=== PATIENT | female | born 1945 | race Caucasian/White ===

== ENCOUNTER → 2016-11-20 | Outpatient (CLI) | payer BC | END | disposition home or self-care (01) | LOC: C.LABSPEC 17:26 | PROVIDERS: ATTEND Podiatrist Primary Podiatric Medicine | DX: B35.1 Tinea unguium (principal) ==

== ENCOUNTER 2017-03-26 20:15 | Observation (INO) | payer BC, OTHER ==
[~2017-03-26] VITALS: Ht 162.6 cm; Wt 77.9 kg
--- NOTE | 2017-03-26 21:53 | EMERGENCY ROOM VISIT NOTE ---
History Report prepared by Leonardo: Asiya Elliott Under the Supervision of: Dr. Melva Brunson M.D. First contact with patient: 21:40 Chief Complaint: VAGINAL BLEEDING Stated Complaint: BLEEDING VAGINALLY History of Present Illness The patient is a 71 year old female who presents to the Emergency Room with complaints of vaginal bleeding beginning this morning. When she used the bathroom yesterday, she noticed there was vaginal blood. This morning when she got up she had diarrhea and it was "like liquid and not a normal bowel movement. " This happened about three times and stopped around 1100 and she felt normal. Around 1630, she went to the bathroom and again noticed a lot of blood, "like a period bleed into the toilet and the tissue." She also states that she is not feeling any pain due to the bleeding. She denies any abdominal pain. The patient states she had a head cold for 3 days, but it was not that bad. The patient notes she has never been able to get . Source of History: patient Onset: this morning Position: other (vagina ) Quality: other (bleeding ) Associated Symptoms: + diarrhea, No abdominal pain Note: no pain Review of Systems See HPI for pertinent positives & negatives. A total of 10 systems reviewed and were otherwise negative. Past Medical & Surgical Medical Problems: (1) Vaginal bleeding Social History Smoking Status: Former Smoker Smokeless Tobacco Use: Unknown Marital Status: Housing Status: lives with significant other Occupation Status: retired Current/Historical Medications Scheduled Aspirin (Aspirin Ec), 81 MG PO DAILY Latanoprost (Xalatan 0.005% Oph Eve), 1 DROPS OPB HS Multivitamin (Multivitamin), 1 TAB PO DAILY Timolol Maleate (Ophth) (Timoptic), 1 DROP OPB DAILY Allergies Coded Allergies: Cephalexin (Verified Allergy, Severe, headache, 03/27/17) Physical Exam Vital Signs Date Time Temp Pulse Resp B/P (MAP) Pulse Ox O2 Delivery O2 Flow Rate FiO2 03/27/17 01:25 36.7 90 16 153/90 96 03/27/17 00:01 90 16 153/90 96 Room Air 03/26/17 21:56 89 20 149/81 97 Room Air 03/26/17 20:27 36.7 96 20 190/90 94 Room Air Physical Exam Vital signs reviewed. General: Elderly, well-appearing female, in no significant distress. HEENT: No scleral icterus, PERRLA, neck supple. Atraumatic. Cardiovascular: Regular rate and rhythm, no extra sounds. Pulmonary: Clear to auscultation bilaterally, normal work of breathing. Abdomen: Soft, nontender, nondistended, positive bowel sounds. Musculoskeletal: Atraumatic, no peripheral edema. Neurologic: Patient awake alert and oriented x 3 Skin: Warm, dry, no rash : significant vaginal atrophy with a pinky sized opening of the vaginal introitus with large, golf ball sized clots Medical Decision & Procedures ER Provider Diagnostic Interpretation: Radiology results as stated below per my review and radiologist interpretation: US PELVIC/ENDOVAG: Endometrium is mildly thickened and heterogenous measuring up to a 9 mm. Given the history of post menopausal bleeding, recommend endometrial sampling. Uterus is unremarkable. Ovaries were not visualized. Radiologist: Tian Hernandez MD Study ready at 23:51 and initial results transmitted at 00:03 Laboratory Results 03/26/17 21:55 Red Blood Count 4.59, Mean Corpuscular Volume 96.1, Mean Corpuscular Hemoglobin 34.2, Mean Corpuscular Hemoglobin Concent 35.6, Mean Platelet Volume 11.4, Neutrophils (%) (Auto) 60.2, Lymphocytes (%) (Auto) 28.3, Monocytes (%) (Auto) 7.2, Eosinophils (%) (Auto) 3.6, Basophils (%) (Auto) 0.5, Neutrophils # (Auto) 3.32, Lymphocytes # (Auto) 1.56, Monocytes # (Auto) 0.40, Eosinophils # (Auto) 0.20, Basophils # (Auto) 0.03 03/26/17 21:55 Test 03/26/17 21:55 White Blood Count 5.52 K/uL (4.8-10.8) Red Blood Count 4.59 M/uL (4.2-5.4) Hemoglobin 15.7 g/dL (12.0-16.0) Hematocrit 44.1 % (37-47) Mean Corpuscular Volume 96.1 fL (80-100) Mean Corpuscular Hemoglobin 34.2 pg (25-34) Mean Corpuscular Hemoglobin Concent 35.6 g/dl (32-36) Platelet Count 118 K/uL (130-400) Mean Platelet Volume 11.4 fL (7.4-10.4) Neutrophils (%) (Auto) 60.2 % Lymphocytes (%) (Auto) 28.3 % Monocytes (%) (Auto) 7.2 % Eosinophils (%) (Auto) 3.6 % Basophils (%) (Auto) 0.5 % Neutrophils # (Auto) 3.32 K/uL (1.4-6.5) Lymphocytes # (Auto) 1.56 K/uL (1.2-3.4) Monocytes # (Auto) 0.40 K/uL (0.11-0.59) Eosinophils # (Auto) 0.20 K/uL (0-0.5) Basophils # (Auto) 0.03 K/uL (0-0.2) RDW Standard Deviation 44.3 fL (36.4-46.3) RDW Coefficient of Variation 12.8 % (11.5-14.5) Immature Granulocyte % (Auto) 0.2 % Immature Granulocyte # (Auto) 0.01 K/uL (0.00-0.02) Anion Gap 10.0 mmol/L (3-11) Est Creatinine Clear Calc Drug Dose 79.0 ml/min Estimated GFR () 103.0 Estimated GFR (Non- 88.9 BUN/Creatinine Ratio 14.6 (10-20) Calcium Level 9.1 mg/dl (8.5-10.1) Total Bilirubin 0.5 mg/dl (0.2-1) Direct Bilirubin 0.1 mg/dl (0-0.2) Aspartate Amino Transf (AST/SGOT) 40 U/L (15-37) Alanine Aminotransferase (ALT/SGPT) 69 U/L (12-78) Alkaline Phosphatase 101 U/L (45-117) Total Protein 7.7 gm/dl (6.4-8.2) Albumin 3.7 gm/dl (3.4-5.0) Beta-Hydroxybutyric Acid 4.50 mg/dL (0.2-2.81) Laboratory results per my review. Medications Administered Medications (Trade) Dose Ordered Sig/Gary Route Start Time Stop Time Status Last Admin Dose Admin Insulin Human Regular (novoLIN-R U-100 PER UNIT) 10 units NOW STAT SC 03/26/17 23:35 03/26/17 23:37 DC 03/27/17 00:40 10 UNITS ED Course 2145: Past medical records reviewed. The patient was evaluated in room C12. A complete history and physical examination was performed. 0022: I revaluated the patient at this time as she was bleeding but she was not feeling any pain. 0030: Upon reevaluation, the patient is resting comfortably. I discussed laboratory and radiographic results with her. She verbalized agreement of the treatment plan. The patient will be evaluated for further management and care bu Dr. Alvaro DO. Medical Decision Differential diagnosis of this patient's presentation includes vaginal laceration, endometrial hyperplasia, tumor. This patient was evaluated and appeared to be in no significant distress. Physical examination reveals a small amount of blood at the introitus. Short while later was called back to the room for heavy vaginal bleeding. The patient soaked through her gown. A large clot was removed from the vagina without difficulty. Introitus was noted to be atrophic. I did speak with Dr. John of [facility] who evaluated the patient emergency department. Patient was sent for ultrasound which reveals a thickened endometrium. On recheck, the patient had bleeding under control. She is found to have an elevated glucose of 300. The patient was given 10 units of regular insulin subcutaneously. Dr. John has requested an internal medicine consultation due to the hyperglycemia. She will observe the patient for H&H checks and planning for definitive care regarding vaginal bleeding. Dr. Palmer of the hospitalist service was consulted for medical management. Medication Reconcilliation Current Medication List: was personally reviewed by me Blood Pressure Screening Patient's blood pressure: Elevated blood pressure Blood pressure disposition: Elevated BP felt to be situational Impression Primary Impression: Abnormal vaginal bleeding Additional Impressions: Endometrial thickening on ultra sound Hyperglycemia Scribe Attestation The scribe's documentation has been prepared under my direction and personally reviewed by me in its entirety. I confirm that the note above accurately reflects all work, treatment, procedures, and medical decision making performed by me. Departure Information Dispostion Admitted as an inpatient (Dr.Brunner ORTIZ ) Referrals No Doctor, Assigned (PCP) Patient Instructions My [facility] Problem Qualifiers
[2017-03-26 22:06] LABS: BASO % 0.5 %; BASO ABS # 0.03 K/uL (0-0.2); EOS % 3.6 %; HEMATOCRIT 44.1 % (37-47); HEMOGLOBIN 15.7 g/dL (12.0-16.0); IG# 0.01 K/uL (0.00-0.02); LYMPH % 28.3 %; LYMPH ABS # 1.56 K/uL (1.2-3.4); MEAN CELL VOLUME 96.1 fL (80-100); MEAN CORPUSCULAR HEMOGLOBIN 34.2 pg (25-34); MEAN CORPUSCULAR HGB CONC 35.6 g/dl (32-36); MEAN PLATELET VOLUME 11.4 fL (7.4-10.4); MONO % 7.2 %; NEUT % 60.2 %; NEUT ABS # 3.32 K/uL (1.4-6.5); PLATELET COUNT 118 K/uL (130-400); RED CELL DISTRIBUTION WIDTH CV 12.8 % (11.5-14.5); RED CELL DISTRIBUTION WIDTH SD 44.3 fL (36.4-46.3); WHITE BLOOD COUNT 5.52 K/uL (4.8-10.8)
[2017-03-26 22:22] LABS: ALBUMIN 3.7 gm/dl (3.4-5.0); CALCIUM 9.1 mg/dl (8.5-10.1); CREATININE 0.66 mg/dl (0.60-1.20); POTASSIUM 3.5 mmol/L (3.5-5.1)
[2017-03-26 22:25] LABS: TOTAL PROTEIN 7.7 gm/dl (6.4-8.2)
[2017-03-26] MEDS ORDERED: FERRIC SUBSULFATE 8 GM VIAL ONE (22:39)
[2017-03-26] MEDS ORDERED: NovoLIN-R INSULIN PER UNIT CHARGE SC STA (23:35)
[2017-03-27] MEDS ORDERED: ASPI81TA28 PO (00:33)
[2017-03-27] MEDS ORDERED: MULT-506 PO (00:33)
--- NOTE | 2017-03-27 00:33 | Medical Consult ---
Consultation Date of Consultation: Mar 26, 2017. Attending Physician: Dr Brunson Reason for Consultation: Vaginal bleeding History of Present Illness Patient is a 71-year-old G0 who presents to the emergency department with sudden onset of bright red vaginal bleeding. She had some vaginal spotting yesterday, and then developed painless heavy vaginal bleeding this evening at approximately 7 PM. She has complained of upper respiratory infection-type symptoms over the past few days as well as a bout of diarrhea. The diarrhea was non-bloody. She describes her activity over the past couple days as normal , doing laundry today. She has not seen a estate manager (or any other physician) in many years, describes her last Pap was approximately 20 years ago. She denies history of abnormal Pap smear however does describe a surgery in her 20s that she thinks may have been cryotherapy. No history of sexually transmitted infections. No other history of gynecologic surgery. Went through menopause at age 50, with no vaginal bleeding since until today. Past Medical/Surgical History PMH: Ocular hypertension PSH: gallbladder Family History Denies family history of gynecologic cancers - no history of uterine, ovarian, cervix, colon cancer. Social History Smoking Status: Former Smoker Home Medications ASA Review of Systems Constitutional: No fever, No chills, No weakness, No problem reported Eyes: No problem reported ENT: No problem reported Respiratory: No problem reported Cardiovascular: No problem reported Abdomen: No problem reported Musculoskeletal: No problem reported Genitourinary - Female: + vaginal bleeding Neurologic: No problem reported Psychiatric: No problem reported Endocrine: No problem reported Integumentary: No problem reported Allergic / Immunologic: No problem reported Physical Exam Date Time Temp Pulse Resp B/P (MAP) Pulse Ox O2 Delivery O2 Flow Rate FiO2 03/26/17 21:56 89 20 149/81 97 Room Air 03/26/17 20:27 36.7 96 20 190/90 94 Room Air General Appearance: WD/WN, no apparent distress Respiratory/Chest: no respiratory distress Cardiovascular: regular rate, rhythm Abdomen/GI: non tender, soft Genitourinary - Female: + pertinent finding (Severe atrophic vaginitis of menopause - only able to insert pediatric speculum. Large amount of clots expressed at time of vaginal exam - approx 100cc. Bleeding mass of tissue at apex of vagina. Difficult to visualize due to bleeding.) Neurologic/Psych: alert, normal mood/affect, oriented x 3 Skin: normal color, warm/dry Laboratory Results Last 24 Hours Test 03/26/17 21:55 White Blood Count 5.52 K/uL Red Blood Count 4.59 M/uL Hemoglobin 15.7 g/dL Hematocrit 44.1 % Mean Corpuscular Volume 96.1 fL Mean Corpuscular Hemoglobin 34.2 pg Mean Corpuscular Hemoglobin Concent 35.6 g/dl Platelet Count 118 K/uL Mean Platelet Volume 11.4 fL Neutrophils (%) (Auto) 60.2 % Lymphocytes (%) (Auto) 28.3 % Monocytes (%) (Auto) 7.2 % Eosinophils (%) (Auto) 3.6 % Basophils (%) (Auto) 0.5 % Neutrophils # (Auto) 3.32 K/uL Lymphocytes # (Auto) 1.56 K/uL Monocytes # (Auto) 0.40 K/uL Eosinophils # (Auto) 0.20 K/uL Basophils # (Auto) 0.03 K/uL RDW Standard Deviation 44.3 fL RDW Coefficient of Variation 12.8 % Immature Granulocyte % (Auto) 0.2 % Immature Granulocyte # (Auto) 0.01 K/uL Sodium Level 139 mmol/L Potassium Level 3.5 mmol/L Chloride Level 105 mmol/L Carbon Dioxide Level 23 mmol/L Anion Gap 10.0 mmol/L Blood Urea Nitrogen 10 mg/dl Creatinine 0.66 mg/dl Est Creatinine Clear Calc Drug Dose 79.0 ml/min Estimated GFR () 103.0 Estimated GFR (Non- 88.9 BUN/Creatinine Ratio 14.6 Random Glucose 323 mg/dl Calcium Level 9.1 mg/dl Total Bilirubin 0.5 mg/dl Direct Bilirubin 0.1 mg/dl Aspartate Amino Transf (AST/SGOT) 40 U/L Alanine Aminotransferase (ALT/SGPT) 69 U/L Alkaline Phosphatase 101 U/L Total Protein 7.7 gm/dl Albumin 3.7 gm/dl Beta-Hydroxybutyric Acid 4.50 mg/dL Assessment & Plan Assessment/Plan: Post menopausal bleeding. Given pelvic exam findings, age, and no gynecologic care for 20+ years, this is concerning for malignancy. Will await pelvic ultrasound. Pelvic exam difficult due to atrophy and patient discomfort, no abdominal masses palpated - but I am concerned patient may have either a cervical or uterine tumor. At this time, hemoglobin is 15, patient is stable. Will continue to monitor vaginal bleeding and await imaging. UPDATE: Called to ER to reevaluate patient upon her return from ultrasound. No active vaginal bleeding at this time - it seems to have subsided. Pad beneath patient is clean. Still awaiting ultrasound report. Since bleeding appears to be much improved, will plan to observe patient with pad counts for now. As long as bleeding remains minimal and stable, will likely need to sample cervix/ uterine tissue with outpatient hysteroscopy/D&C/exam under anesthesia. Will repeat H/H in AM. Due to patient's elevated blood glucose, internal medicine will be consulted for medical management.
[2017-03-27] MEDS ORDERED: LATA0.5S OPB (00:34)
[2017-03-27] MEDS ORDERED: TIMO0.5S35 OPB (00:34)
--- NOTE | 2017-03-27 00:47 | History and Physical ---
History & Physical Date & Time of Service: Mar 27, 2017 at 00:39 Chief Complaint: Postmenopausal vaginal bleeding Primary Care Physician: No Doctor, Assigned History of Present Illness Source: patient Patient is a 71-year-old G0 who presented to the emergency department with sudden onset of bright red vaginal bleeding. She had some vaginal spotting yesterday, and then developed painless heavy vaginal bleeding at approximately 7 PM. She has complained of upper respiratory infection-type symptoms over the past few days as well as a bout of diarrhea. The diarrhea was non-bloody. She describes her activity over the past couple days as normal, doing laundry today. She has not seen a auto air conditioning installer (or any other physician) in many years, describes her last Pap was approximately 20 years ago. She denies history of abnormal Pap smear however does describe a surgery in her 20s that she thinks may have been cryotherapy. No history of sexually transmitted infections. No other history of gynecologic surgery. Went through menopause at age 50, with no vaginal bleeding since until today. Past Medical/Surgical History PMH: ocular hypertension PSH: gallbladder, ?cryosurgery of cervix (in her 20s) Family History Denies gynecologic cancer history - no cervix, ovarian, uterine, colon cancer history. Social History Smoking Status: Former Smoker Smokeless Tobacco Use: Unknown Marital Status: Home Medications Scheduled Aspirin (Aspirin Ec), 81 MG PO DAILY Latanoprost (Xalatan 0.005% Oph Eve), 1 DROPS OPB HS Multivitamin (Multivitamin), 1 TAB PO DAILY Timolol Maleate (Ophth) (Timoptic), 1 DROP OPB DAILY Review of Systems Constitutional: No problem reported Respiratory: No problem reported Cardiovascular: No problem reported Musculoskeletal: No problem reported Genitourinary - Female: + vaginal bleeding Neurologic: No problem reported Psychiatric: No problem reported Endocrine: No problem reported Hematologic / Lymphatic: No problem reported Integumentary: No problem reported Allergic / Immunologic: No problem reported Physical Exam Vital Signs Date Time Temp Pulse Resp B/P (MAP) Pulse Ox O2 Delivery O2 Flow Rate FiO2 03/27/17 00:01 90 16 153/90 96 Room Air 03/26/17 21:56 89 20 149/81 97 Room Air 03/26/17 20:27 36.7 96 20 190/90 94 Room Air General Appearance: WD/WN, no apparent distress Head: normocephalic, atraumatic Respiratory/Chest: no respiratory distress Cardiovascular: regular rate, rhythm Abdomen/GI: non tender, soft, no organomegaly Genitourinary - Female: + pertinent finding (vaginal bleeding, appearance of mass at apex of vagina. ) Extremities/Musculoskelatal: normal inspection Neurologic/Psych: alert, normal mood/affect, oriented x 3 Skin: normal color, warm/dry, no rash Diagnostics Laboratory Results Results Past 24 Hours Test 03/26/17 21:55 Range/Units White Blood Count 5.52 4.8-10.8 K/uL Red Blood Count 4.59 4.2-5.4 M/uL Hemoglobin 15.7 12.0-16.0 g/dL Hematocrit 44.1 37-47 % Mean Corpuscular Volume 96.1 80-100 fL Mean Corpuscular Hemoglobin 34.2 25-34 pg Mean Corpuscular Hemoglobin Concent 35.6 32-36 g/dl Platelet Count 118 130-400 K/uL Mean Platelet Volume 11.4 7.4-10.4 fL Neutrophils (%) (Auto) 60.2 % Lymphocytes (%) (Auto) 28.3 % Monocytes (%) (Auto) 7.2 % Eosinophils (%) (Auto) 3.6 % Basophils (%) (Auto) 0.5 % Neutrophils # (Auto) 3.32 1.4-6.5 K/uL Lymphocytes # (Auto) 1.56 1.2-3.4 K/uL Monocytes # (Auto) 0.40 0.11-0.59 K/uL Eosinophils # (Auto) 0.20 0-0.5 K/uL Basophils # (Auto) 0.03 0-0.2 K/uL RDW Standard Deviation 44.3 36.4-46.3 fL RDW Coefficient of Variation 12.8 11.5-14.5 % Immature Granulocyte % (Auto) 0.2 % Immature Granulocyte # (Auto) 0.01 0.00-0.02 K/uL Sodium Level 139 136-145 mmol/L Potassium Level 3.5 3.5-5.1 mmol/L Chloride Level 105 98-107 mmol/L Carbon Dioxide Level 23 21-32 mmol/L Anion Gap 10.0 3-11 mmol/L Blood Urea Nitrogen 10 7-18 mg/dl Creatinine 0.66 0.60-1.20 mg/dl Est Creatinine Clear Calc Drug Dose 79.0 ml/min Estimated GFR () 103.0 Estimated GFR (Non- 88.9 BUN/Creatinine Ratio 14.6 10-20 Random Glucose 323 70-99 mg/dl Calcium Level 9.1 8.5-10.1 mg/dl Total Bilirubin 0.5 0.2-1 mg/dl Direct Bilirubin 0.1 0-0.2 mg/dl Aspartate Amino Transf (AST/SGOT) 40 15-37 U/L Alanine Aminotransferase (ALT/SGPT) 69 12-78 U/L Alkaline Phosphatase 101 45-117 U/L Total Protein 7.7 6.4-8.2 gm/dl Albumin 3.7 3.4-5.0 gm/dl Beta-Hydroxybutyric Acid 4.50 0.2-2.81 mg/dL Impression Assessment and Plan Assessment/Plan: Post menopausal bleeding. Given pelvic exam findings, age, and no gynecologic care for 20+ years, this is concerning for malignancy. Will await pelvic ultrasound. Pelvic exam difficult due to atrophy and patient discomfort, no abdominal masses palpated - but I am concerned patient may have either a cervical or uterine tumor. At this time, hemoglobin is 15, patient is stable. Will continue to monitor vaginal bleeding and await imaging. UPDATE: Called to ER to reevaluate patient upon her return from ultrasound. No active vaginal bleeding at this time - it seems to have subsided. Pad beneath patient is clean. Still awaiting ultrasound report. Since bleeding appears to be much improved, will plan to observe patient with pad counts for now. As long as bleeding remains minimal and stable, will likely need to sample cervix/ uterine tissue on an outpatient basis with hysteroscopy/D&C/exam under anesthesia. Will repeat H/H in AM. PLAN: At this time, patient is stable. Due to concern over the large clots she passed during her evaluation in the ER, will observe for continued/increased vaginal bleeding overnight, perform pad counts. Due to patient's elevated blood glucose, internal medicine will be consulted for medical management. If vaginal bleeding is controlled in the morning, from the gynecologic perspective, will plan to discharge to home to followup in the office as an outpatient to set up outpatient hysteroscopy/D&C. Will appreciate recommendations from consulting internal medicine service re: additional medical needs. VTE Prophylaxis VTE Risk Assessment Done? Y/N: Yes Risk Level: Moderate Given or contraindicated: SCD's Note Total Time: Critical Care 30 - 74 minutes
[2017-03-27] MEDS ORDERED: IV FLUIDS COMPLETED PRN (01:30)
[2017-03-27 01:35] VITALS: BP 159/76; PULSE 66; TEMP 36.5; O2SAT 96; BMI 29.5
[2017-03-27] MEDS ORDERED: POTASSIUM CHLORIDE 20 MEQ TABCR PO STA (01:40)
--- NOTE | 2017-03-27 01:43 | Medical Consult ---
Consultation Date of Consultation: Mar 27, 2017. Attending Physician: Reason for Consultation: hyperglycemia History of Present Illness This is a 71 yo f that presented to the ED with significant intermittent vaginal bleeding with large clots throughout the day today. The patient was seen by gynecology and admitted for observation for her vaginal bleeding. The patient was evaluated in the ED and found to be hyperglycemic and patient is not a known diabetic. She does not have a PCP nor is she currently on any medication. She states that she has no polyuria/ polydipsia, denies abdominal pain. Patient states she has no known history of MT or TIA/ stroke. Can not recall any significant past medical history. Non smoker but former smoker. Past Medical/Surgical History Medical Problems: (1) Hyperplasia of cervix Status: Acute (2) Malignancy Status: Acute (3) Rectal bleeding Status: Acute Family History Noncontributory Social History Smoking Status: Former Smoker Smokeless Tobacco Use: No Alcohol Use: socially Drug Use: none Marital Status: Housing Status: lives with family Occupation Status: retired Allergies Coded Allergies: Cephalexin (Verified Adverse Reaction, Intermediate, headache, 03/27/17) Current Inpatient Medications Current Inpatient Medications Medications (Trade) Dose Ordered Sig/[place] Route Start Time Stop Time Status Last Admin Dose Admin Miscellaneous (Iv Fluids Completed) 1 ea PRN PRN N/A 03/27/17 01:30 03/27/18 01:29 Review of Systems Constitutional: No fever, No chills, No sweats Eyes: No worsening of vision ENT: No hearing loss Respiratory: No cough, No sputum, No wheezing, No shortness of breath, No dyspnea on exertion, No dyspnea at rest Cardiovascular: No chest pain Abdomen: No pain, No nausea, No vomiting, No diarrhea, No constipation, No GI bleeding Musculoskeletal: No joint pain, No muscle pain Genitourinary - Female: + vaginal bleeding, No dysuria, No hematuria Neurologic: No memory loss, No weakness, No numbness/tingling, No balance problems Psychiatric: No depression symptoms, No anxiety Endocrine: + fatigue Hematologic / Lymphatic: + abnormal bleeding/bruising Integumentary: No rash Allergic / Immunologic: No environmental allergies Physical Exam Date Time Temp Pulse Resp B/P (MAP) Pulse Ox O2 Delivery O2 Flow Rate FiO2 03/27/17 01:25 36.7 90 16 153/90 96 03/27/17 00:01 90 16 153/90 96 Room Air 03/26/17 21:56 89 20 149/81 97 Room Air 03/26/17 20:27 36.7 96 20 190/90 94 Room Air General Appearance: no apparent distress Head: normocephalic, atraumatic Eyes: normal inspection ENT: normal ENT inspection Neck: supple Respiratory/Chest: normal breath sounds, no respiratory distress, no accessory muscle use Cardiovascular: regular rate, rhythm, no murmur, normal peripheral pulses Abdomen/GI: normal bowel sounds, non tender, soft, no organomegaly Back: normal inspection, no CVA tenderness, normal range of motion Extremities/Musculoskelatal: normal inspection, no calf tenderness, no pedal edema, normal range of motion Neurologic/Psych: alert, normal mood/affect, oriented x 3 Skin: normal color, warm/dry, no rash Lymphatic: no adenopathy Laboratory Results Last 24 Hours Test 03/26/17 21:55 White Blood Count 5.52 K/uL Red Blood Count 4.59 M/uL Hemoglobin 15.7 g/dL Hematocrit 44.1 % Mean Corpuscular Volume 96.1 fL Mean Corpuscular Hemoglobin 34.2 pg Mean Corpuscular Hemoglobin Concent 35.6 g/dl Platelet Count 118 K/uL Mean Platelet Volume 11.4 fL Neutrophils (%) (Auto) 60.2 % Lymphocytes (%) (Auto) 28.3 % Monocytes (%) (Auto) 7.2 % Eosinophils (%) (Auto) 3.6 % Basophils (%) (Auto) 0.5 % Neutrophils # (Auto) 3.32 K/uL Lymphocytes # (Auto) 1.56 K/uL Monocytes # (Auto) 0.40 K/uL Eosinophils # (Auto) 0.20 K/uL Basophils # (Auto) 0.03 K/uL RDW Standard Deviation 44.3 fL RDW Coefficient of Variation 12.8 % Immature Granulocyte % (Auto) 0.2 % Immature Granulocyte # (Auto) 0.01 K/uL Sodium Level 139 mmol/L Potassium Level 3.5 mmol/L Chloride Level 105 mmol/L Carbon Dioxide Level 23 mmol/L Anion Gap 10.0 mmol/L Blood Urea Nitrogen 10 mg/dl Creatinine 0.66 mg/dl Est Creatinine Clear Calc Drug Dose 79.0 ml/min Estimated GFR () 103.0 Estimated GFR (Non- 88.9 BUN/Creatinine Ratio 14.6 Random Glucose 323 mg/dl Calcium Level 9.1 mg/dl Total Bilirubin 0.5 mg/dl Direct Bilirubin 0.1 mg/dl Aspartate Amino Transf (AST/SGOT) 40 U/L Alanine Aminotransferase (ALT/SGPT) 69 U/L Alkaline Phosphatase 101 U/L Total Protein 7.7 gm/dl Albumin 3.7 gm/dl Beta-Hydroxybutyric Acid 4.50 mg/dL Assessment & Plan This is a 71 yo f with no significant PMHX presenting with significant vaginal bleeding and hyperglycemia Hyperglycemia - insulin ISS - Consideration for initiation of metformin in am - HBA1C and FLP - DM educator - NSS with 20 KCL @ 100cc/h HTN - most likely stress induced - recheck with PCP Vaginal bleeding - per primary team will arrange for PCP follow up via case mx DVT Prophylaxis SCD FULL CODE Attending addendum: I have supervised the medical residents activities, and agree with the H&P unless as otherwise noted. Assessment and Plan: Hyperglycemia-- Place on Accu-Cheks before meals and at bedtime with NovoLog coverage per scale Check a hemoglobin A1c and fasting lipid panel NSS + KCl 20 mEq at 100 ML's per hour Elevated blood pressure- Follow serial vital signs, if persistent elevation we will address with medications.
[2017-03-27] MEDS ORDERED: GLUCOSE 10 TABS/TUBE PO PRN (02:30)
[2017-03-27] MEDS ORDERED: GLUCAGON FOR INJ 1 MG VIAL SQ PRN (02:30)
[2017-03-27] MEDS ORDERED: DEXTROSE 50% 50 ML SYR IV PRN (02:30)
[2017-03-27] MEDS ORDERED: GLUCOSE 40% GEL 15 GM TUBE PO PRN (02:30)
[2017-03-27] MEDS ORDERED: LANTUS PER UNIT CHARGE SC STA (02:33)
[2017-03-27] MEDS ORDERED: NSS + 20MEQ KCL 1000ML 1,000 ML IV SCH (02:45)
[2017-03-27] MEDS: INSULIN ASPART 100 UNITS/ML 3 ML PEN SC SCH ×3 (03:50→12:36)
[2017-03-27 04:00] VITALS: BP 154/82; PULSE 83; TEMP 36.7; O2SAT 96
[2017-03-27 07:02] LABS: BASO % 0.3 %; BASO ABS # 0.02 K/uL (0-0.2); EOS % 2.4 %; EOS ABS # 0.15 K/uL (0-0.5); HEMATOCRIT 40.1 % (37-47); HEMOGLOBIN 14.1 g/dL (12.0-16.0); IG# 0.02 K/uL (0.00-0.02); LYMPH % 27.5 %; MEAN CELL VOLUME 95.5 fL (80-100); MEAN CORPUSCULAR HEMOGLOBIN 33.6 pg (25-34); MEAN CORPUSCULAR HGB CONC 35.2 g/dl (32-36); MEAN PLATELET VOLUME 11.2 fL (7.4-10.4); MONO % 7.6 %; MONO ABS # 0.47 K/uL (0.11-0.59); NEUT % 61.9 %; NEUT ABS # 3.83 K/uL (1.4-6.5); PLATELET COUNT 131 K/uL (130-400); RED CELL DISTRIBUTION WIDTH CV 12.7 % (11.5-14.5); RED CELL DISTRIBUTION WIDTH SD 44.5 fL (36.4-46.3); WHITE BLOOD COUNT 6.19 K/uL (4.8-10.8)
[2017-03-27 07:16] LABS: PTT PATIENT 25.4 SECONDS (21.0-31.0)
--- NOTE | 2017-03-27 07:20 | DIAGNOSTIC IMAGING REPORT ---
ULTRASOUND OF THE PELVIS CLINICAL HISTORY: Vaginal bleeding. COMPARISON STUDY: No priors. TECHNIQUE: Real-time, grayscale, and color flow sonography of the pelvis is performed both transabdominally and endovaginally. Images are reviewed in the transverse and longitudinal planes. FINDINGS: Uterus: The uterus is normal in size and echotexture, measuring 5.8 x 2.5 x 3.7 cm. Endometrium: The endometrium is normal in appearance, and the endometrial stripe is normal in thickness measuring up to 0.9 cm. Small cystic foci are present within the endometrium. Ovaries: The ovaries were not visualized on the transabdominal or endovaginal imaging. Pelvis: There is no free fluid in the cul-de-sac. No concerning adnexal lesion is seen. IMPRESSION: 1. The endometrium is thickened for age and demonstrates small cystic foci. Follow-up with gynecology is recommended with consideration to endometrial biopsy. 2. The ovaries were not visualized. No adnexal abnormality is identified. Electronically signed by: Rahul Cuevas M.D. 03/27/2017 7:18 AM Dictated Date/Time: 03/27/2017 7:17 AM
[2017-03-27 07:24] LABS: CALCIUM 8.8 mg/dl (8.5-10.1); CREATININE 0.61 mg/dl (0.60-1.20); POTASSIUM 4.2 mmol/L (3.5-5.1)
[2017-03-27] MEDS ORDERED: INSULIN ASPART 100 UNITS/ML 3 ML PEN SC SCH (07:30)
--- NOTE | 2017-03-27 07:45 | OB/GYN Progress Note ---
ICT SYSTEMS TEST ENGINEER Progress Note Date of Service Mar 27, 2017. Subjective conversation w/ patient, physical exam Ambulation: ambulating normally Voiding: no voiding problems Passing Gas: Yes Diet Tolerance: NPO Notes: Scant vaginal bleeding on pad overnight - bleeding has significantly improved. Patient is feeling well. Review of Systems Constitutional: No problem reported Respiratory: No problem reported Cardiac: No problem reported Breast: No problem reported Abdomen: No problem reported Female : + abnormal vaginal bleeding Objective Vital Signs Date Time Temp Pulse Resp B/P (MAP) Pulse Ox O2 Delivery O2 Flow Rate FiO2 03/27/17 04:00 36.7 83 18 154/82 (106) 96 Room Air 03/27/17 01:35 36.5 66 18 159/76 96 Room Air 03/27/17 01:25 36.7 90 16 153/90 96 03/27/17 00:01 90 16 153/90 96 Room Air 03/26/17 21:56 89 20 149/81 97 Room Air 03/26/17 20:27 36.7 96 20 190/90 94 Room Air Physical Exam General Appearance: WELL-APPEARING, NO APPARENT DISTRESS Respiratory/Chest: no respiratory distress Cardiovascular: regular rate, rhythm Abdomen: non tender, soft Extremities: normal inspection Laboratory Results Last 24 Hours Test 03/26/17 21:55 03/27/17 02:05 03/27/17 03:27 03/27/17 04:40 White Blood Count 5.52 K/uL Red Blood Count 4.59 M/uL Hemoglobin 15.7 g/dL Hematocrit 44.1 % Mean Corpuscular Volume 96.1 fL Mean Corpuscular Hemoglobin 34.2 pg Mean Corpuscular Hemoglobin Concent 35.6 g/dl Platelet Count 118 K/uL Mean Platelet Volume 11.4 fL Neutrophils (%) (Auto) 60.2 % Lymphocytes (%) (Auto) 28.3 % Monocytes (%) (Auto) 7.2 % Eosinophils (%) (Auto) 3.6 % Basophils (%) (Auto) 0.5 % Neutrophils # (Auto) 3.32 K/uL Lymphocytes # (Auto) 1.56 K/uL Monocytes # (Auto) 0.40 K/uL Eosinophils # (Auto) 0.20 K/uL Basophils # (Auto) 0.03 K/uL RDW Standard Deviation 44.3 fL RDW Coefficient of Variation 12.8 % Immature Granulocyte % (Auto) 0.2 % Immature Granulocyte # (Auto) 0.01 K/uL Sodium Level 139 mmol/L Potassium Level 3.5 mmol/L Chloride Level 105 mmol/L Carbon Dioxide Level 23 mmol/L Anion Gap 10.0 mmol/L Blood Urea Nitrogen 10 mg/dl Creatinine 0.66 mg/dl Est Creatinine Clear Calc Drug Dose 79.0 ml/min Estimated GFR () 103.0 Estimated GFR (Non- 88.9 BUN/Creatinine Ratio 14.6 Random Glucose 323 mg/dl Calcium Level 9.1 mg/dl Total Bilirubin 0.5 mg/dl Direct Bilirubin 0.1 mg/dl Aspartate Amino Transf (AST/SGOT) 40 U/L Alanine Aminotransferase (ALT/SGPT) 69 U/L Alkaline Phosphatase 101 U/L Total Protein 7.7 gm/dl Albumin 3.7 gm/dl Beta-Hydroxybutyric Acid 4.50 mg/dL Bedside Glucose 300 mg/dl 277 mg/dl Urine Color YELLOW Urine Appearance CLEAR Urine pH 5.0 Urine Specific [place] 1.032 Urine Protein NEG Urine Glucose (UA) 3+ Urine Ketones 1+ Urine Occult Blood 3+ Urine Nitrite NEG Urine Bilirubin NEG Urine Urobilinogen NEG Urine Leukocyte Esterase NEG Urine WBC (Auto) 1-5 /hpf Urine RBC (Auto) >30 /hpf Urine Hyaline Casts (Auto) 1-5 /lpf Urine Epithelial Cells (Auto) 10-20 /lpf Urine Bacteria (Auto) NEG Test 03/27/17 05:22 03/27/17 06:48 Bedside Glucose 203 mg/dl White Blood Count 6.19 K/uL Red Blood Count 4.20 M/uL Hemoglobin 14.1 g/dL Hematocrit 40.1 % Mean Corpuscular Volume 95.5 fL Mean Corpuscular Hemoglobin 33.6 pg Mean Corpuscular Hemoglobin Concent 35.2 g/dl Platelet Count 131 K/uL Mean Platelet Volume 11.2 fL Neutrophils (%) (Auto) 61.9 % Lymphocytes (%) (Auto) 27.5 % Monocytes (%) (Auto) 7.6 % Eosinophils (%) (Auto) 2.4 % Basophils (%) (Auto) 0.3 % Neutrophils # (Auto) 3.83 K/uL Lymphocytes # (Auto) 1.70 K/uL Monocytes # (Auto) 0.47 K/uL Eosinophils # (Auto) 0.15 K/uL Basophils # (Auto) 0.02 K/uL RDW Standard Deviation 44.5 fL RDW Coefficient of Variation 12.7 % Immature Granulocyte % (Auto) 0.3 % Immature Granulocyte # (Auto) 0.02 K/uL Prothrombin Time 10.8 SECONDS Prothromb Time International Ratio 1.0 Activated Partial Thromboplast Time 25.4 SECONDS Partial Thromboplastin Ratio 1.0 Sodium Level 142 mmol/L Potassium Level 4.2 mmol/L Chloride Level 110 mmol/L Carbon Dioxide Level 26 mmol/L Anion Gap 6.0 mmol/L Blood Urea Nitrogen 8 mg/dl Creatinine 0.61 mg/dl Est Creatinine Clear Calc Drug Dose 85.5 ml/min Estimated GFR () 105.7 Estimated GFR (Non- 91.2 BUN/Creatinine Ratio 13.7 Random Glucose 190 mg/dl Calcium Level 8.8 mg/dl Triglycerides Level 193 mg/dl Cholesterol Level 197 mg/dl HDL Cholesterol 35 mg/dl LDL Cholesterol, Calculated 123 mg/dl VLDL Cholesterol, Calculated 39 mg/dl Cholesterol/HDL Ratio 5.6 Assessment and Plan Continue Routine Care: Patient is doing well this morning - bleeding has improved significantly - she now has only a scant amount of blood on a pad. Still awaiting radiology read on ultrasound. However, by my review of images, appears to be a thickened endometrial lining with possible mass/polyp in cervix. We discussed possibility of etiologies - concern for malignancy vs benign thickened endometrium vs polyp. Plan is to discharge home today, have patient followup in office to schedule outpatient hysteroscopy D&C. Hospitalist group is consulted for elevated blood sugar management and to coordinate followup for this. Per previous note, plan is to eval blood sugars this morning and determine medical treatment (?metformin). Will discharge home pending ok from hospitalist group.
--- NOTE | 2017-03-27 07:51 | Discharge Instructions ---
Discharge Instructions Date of Service Mar 27, 2017. Admission Reason for Admission: Vaginal Bleeding Discharge Discharge Diagnosis / Problem: thickened endometrial lining Discharge Goals Goal(s): Continuing CAB STATION ATTENDANT care Activity Recommendations Activity Limitations: per Instructions/Follow-up section . Instructions / Follow-Up Instructions / Follow-Up ACTIVITY RECOMMENDATIONS: Activity: * Avoid sexual intercourse. Bathing: * Showers or baths are permissible. Vaginal Bleeding: * Odorous, blood-tinged or brownish discharge may be present. * Pads should be used and not tampons. * If bleeding becomes free flowing, notify our office at . * If you feel bleeding is severe and heavy, or you feel that this is emergent, please go to the emergency department. Temperature: * Any fever above 100.4 degrees F should be reported to our office at . FOLLOW-UP: Appointments: * You will need to call the office at soon after discharge to make the appointment for your appointment if it has not already been scheduled. * Additional information regarding activity, sexual intercourse and when to return to work will be given at this appointment. WE WISH YOU A SPEEDY RECOVERY! Current Hospital Diet Patient's current hospital diet: Diabetes Type 2 Diet Discharge Diet Recommended Diet: Diabetes Type 2 Diet Pending Studies Studies pending at discharge: no Laboratory Results Hemoglobin A1c Test 03/27/17 06:48 Range/Units Lipid Panel Test 03/27/17 06:48 Range/Units Triglycerides Level 193 H 0-150 mg/dl Cholesterol Level 197 0-200 mg/dl HDL Cholesterol 35 mg/dl Cholesterol/HDL Ratio 5.6 LDL Cholesterol, Calculated 123 mg/dl Medical Emergencies . Who to Call and When: Medical Emergencies: If at any time you feel your situation is an emergency, please call 911 immediately. . Non-Emergent Contact Non-Emergency issues call your: Primary Care Provider, [employer] Executive . . "Provider Documentation" section prepared by Payton John. . VTE Core Measure Inpt VTE Proph given/why not?: SCD's
--- NOTE | 2017-03-27 07:56 | Discharge Summary ---
Discharge Summary Date of Service Mar 27, 2017. Discharge Summary Admission Date: Mar 27, 2017 at 00:38 Discharge Date: Mar 27, 2017 Discharge Disposition: Home Principal Diagnosis: Thickened endometrial lining Problems/Secondary Diagnoses: Elevated glucose Consultations: Hospitalist service/Internal medicine Discharge Exam Please see progress note from day of discharge. Hospital Course Patient was admitted for observation from the ER - after presenting with heavy vaginal bleeding and passage of clots. Bleeding stabilized overnight, and was scant in the morning. Ultrasound showed thickened endo lining. Plans are to followup in the office for endometrial sampling (outpatient hysteroscopy, D&C). On presentation, patient had elevated glucose levels in the 300s. Hospitalist service was consulted, patient will establish primary care and will followup for further management of newly diagnosed diabetes. Total Time Spent: Less than 30 minutes This includes examination of the patient, discharge planning, medication reconciliation, and communication with other providers. Discharge Instructions Please refer to the electronic Patient Visit Report (Discharge Instructions) for additional information. Follow-Up Make an appointment with primary care. OBGYN followup in office [facility] to schedule surgery.
[2017-03-27 08:00] VITALS: BP 152/84; PULSE 88; TEMP 36.6; O2SAT 96
[2017-03-27 08:08] LABS: HEMOGLOBIN A1C 9.1 % (4.5-5.6)
[2017-03-27] MEDS ORDERED: METFORMIN HCL 500 MG TAB PO SCH (09:00)
[2017-03-27] MEDS ORDERED: GLC500 PO (10:59)
[2017-03-27] MEDS ORDERED: SITA100T3 PO (10:59)
[2017-03-27] MEDS ORDERED: GLUC-131 SC (10:59)
--- NOTE | 2017-03-27 11:09 | Progress Note ---
Progress Note Date of Service Mar 27, 2017. Progress Note time - 1100 S: no events since resident MD saw pt feels good vaginal bleeding nearly resolved denies visual change, nocturia, polyuria, polydipsia, change in appetite mild paresthesias of feet for some time O: BPs mildly elevated o/w VSS gen - nad mouth - MMM heart - 1/6 JADA RUSB, RRR, s1, s2 lungs - CTA b/l abd - soft, NT ext - no edema A/P: 1. new-onset T2DM - appreciate nutrition and Diabetes Education consults. send home with metformin 500 BID + januvia 100mg daily. discussed a1c goals, sugar goals, frequency of checks, eye f/u, etc. 2. hyperlipidemia - f/u with new PCP 3. probable essential HTN - f/u with PCP; check BPs at home; likely will need OC or ARB 4. vaginal bleeding per rolling mill operator ok from med standpoint to d/c home will arrange PCP follow-up Suhas HERNANDEZ MD
[2017-03-27 11:18] VITALS: BP 152/84; PULSE 88; TEMP 36.6; O2SAT 96
[2017-03-27 11:30] VITALS: BP 153/82; PULSE 71; TEMP 36.6; O2SAT 96
[2017-03-27 12:38] VITALS: BMI 29.5
[2017-03-27 12:53] VITALS: Ht 162.6 cm; Wt 77.9 kg
== END 2017-03-27 12:45 | disposition home or self-care (01) ==
LOC: C.EDB 20:16 → C.MS4N 03-27 00:38 → ENRESERV 03-27 00:55
PROVIDERS: ADMIT Obstetrics & Gynecology; ATTEND Obstetrics & Gynecology
DX: N93.9 Abnormal uterine and vaginal bleeding, unspecified (principal); Z87.891 Personal history of nicotine dependence; Z79.82 Long term (current) use of aspirin; R73.9 Hyperglycemia, unspecified

== ENCOUNTER 2017-04-06 07:25 | Day surgery (SDC) | payer BC ==
[2017-04-03 11:30] VITALS: BMI 29.0
--- NOTE | 2017-04-03 11:57 | PAT Medication Instructions ---
Service Date Apr 03, 2017. Current Home Medication List Latanoprost (Xalatan 0.005% Oph Eve), 1 DROPS OPB HS Metformin Hcl (Glucophage), 500 MG PO BID Multivitamin (Multivitamin), 1 TAB PO QAM Sitagliptin Phosphate (Januvia), 100 MG PO QAM Timolol Maleate (Ophth) (Timoptic), 1 DROP OPB QAM Medication Instructions For Your Scheduled Surgery - Hold the following medications 48 hours prior to surgery: Metformin Hcl (Glucophage), 500 MG PO BID - Hold the following medications the morning of surgery: Multivitamin (Multivitamin), 1 TAB PO QAM Sitagliptin Phosphate (Januvia), 100 MG PO QAM - Take the following medications the morning of surgery with a sip of water: Timolol Maleate (Ophth) (Timoptic), 1 DROP OPB QAM - Take the following medications as scheduled the night before surgery: Latanoprost (Xalatan 0.005% Oph Eve), 1 DROPS OPB HS If you have any questions please call us at [phone] or [phone] or [phone]
[~2017-04-06] VITALS: Ht 160 cm; Wt 76.2 kg
[~2017-04-06 07:25] MED LIST: DEXAMETHASONE SOD INJ 4 MG/ML VIAL ONE; FENTANYL CITRATE INJ 50 MCG/1 ML 2 ML VIAL ONE; GLC/500 PO; LACTATED RINGER'S 1000ML 1,000 ML IV SCH; LATA0.5S OPB; LIDOCAINE HCL 2% 2 ML VIAL (20MG/ML) ONE; MIDAZOLAM HCL 1 MG/ML 2ML VIAL ONE; MULT-506 PO; ONDANSETRON INJ 2 MG/ML 2 ML VIAL ONE; PROPOFOL IV EMULSION 10 MG/ML 20 ML VIAL IV ONE; SITA100T3 PO; TIMO0.5S35 OPB
[2017-04-06 08:05] VITALS: BP 147/72; PULSE 63; TEMP 36.6; O2SAT 97; Ht 160 cm; Wt 76.2 kg
--- NOTE | 2017-04-06 08:50 | History & Physical Bridge Note ---
H&P Re-Evaluation Bridge Note: I have examined the patient, reviewed the History & Physical and in the interval since the performance of the History & Physical I have noted the following changes of clinical significance: No changes noted
[2017-04-06] MEDS ORDERED: PHENYLEPHRINE 100MCG/ML 5ML SYR ONE (09:29)
[2017-04-06] MEDS ORDERED: ARTIFICIAL TEARS OP OINT 3.5 GM TUBE ONE (09:57)
[2017-04-06] MEDS ORDERED: LABETALOL HCL IV 5 MG/ML 20ML IV PRN (10:00)
[2017-04-06] MEDS ORDERED: NALOXONE HCL 0.4 MG/1 ML VIAL/CARP IV PRN (10:00)
[2017-04-06] MEDS ORDERED: PROMETHAZINE HCL INJ 12.5 MG in SODIUM CHLORIDE 0.9% 50ML 50 ML IV PRN (10:00)
[2017-04-06] MEDS ORDERED: FENTANYL CITRATE INJ 50 MCG/1 ML 2 ML VIAL IV PRN (10:00)
[2017-04-06] MEDS ORDERED: FLUMAZENIL 0.1 MG/1 ML 10 ML VIAL IV PRN (10:00)
[2017-04-06] MEDS ORDERED: EpHEDrine SULFATE INJ 50 MG/ML AMP IV PRN (10:00)
[2017-04-06] MEDS ORDERED: ATROPINE SULFATE 0.1 MG/ML 5ML SYR IV PRN (10:00)
[2017-04-06] MEDS ORDERED: ONDANSETRON INJ 2 MG/ML 2 ML VIAL IV PRN ×2 (10:00→10:45)
[2017-04-06] MEDS ORDERED: SILVER NITR/POTASSIUM NITRATE APPLICATOR ONE ×2 (10:03→10:06)
--- NOTE | 2017-04-06 10:12 | [facility] Post Operative Brief Note ---
Immediate Operative Summary Operative Date Apr 06, 2017. Pre-Operative Diagnosis Postmenopausal Bleeding Post-Operative Diagnosis Postmenopausal Bleeding, Cervical polyp Procedure(s) Performed Fractional Dilation and Curettage with ECC, Hysteroscopy, Cervical Polypectomy, Cervical biopsy Surgeon Dr. John Regulator Inspector Surgeon(s) NONE Estimated Blood Loss 5ml Findings Consistent with Post-Op Diagnosis 1cm bleeding cervical polyp, small mass in uterine cavity Specimens Permanent Specimens A: Cervical Polys B: Endocervical Currettage Drains None Anesthesia Type General Complication(s) none Disposition Accompanied Pt To Recover: no Disposition: Recovery Room / PACU
[2017-04-06] MEDS ORDERED: SODIUM CHLORIDE 0.9% 1000ML 1,000 ML IV SCH (10:38)
--- NOTE | 2017-04-06 10:40 | Discharge Instructions ---
Discharge Instructions Date of Service Apr 06, 2017. Visit Reason for Visit: Post Menopausal Bleeding Discharge Discharge Diagnosis / Problem: Postmenopausal bleeding, cervix polyp Discharge Goals Goal(s): Diagnostic testing, Therapeutic intervention Activity Recommendations Activity Limitations: per Instructions/Follow-up section Anesthesia . Post Anesthesia Instructions: If you have had General Anesthesia or IV Sedation: * Do not drive today. * Resume driving when surgeon permits. * Do not make important decisions or sign legal documents today. * Call surgeon for: 1. Temperature elevations greater than 101 degrees F. 2. Uncontrollable pain. 3. Excessive bleeding. 4. Persistent nausea and vomiting. 5. Medication intolerance (nausea, vomiting or rash). * For nausea and vomiting use only clear liquids such as: tea, soda, bouillon until nausea subsides, then gradually increase diet as tolerated. * If you have any concerns or questions, call your surgeon's office. If physician is unavailable and it is an emergency, call 911 or go to the nearest emergency room. . Instructions / Follow-Up Instructions / Follow-Up ACTIVITY RECOMMENDATIONS: * Avoid tampons, douching, hot tubs, pools, and intercourse until bleeding has stopped. * May shower as usual. * No strenuous activity for 24-48 hours. After 24-48 hours, you may do anything you feel like doing (driving and sports are okay). SPECIAL CARE INSTRUCTIONS: Special Diet: * Mild nausea may occur in the immediate post-operative period. * Take clear liquids such as tea, cola or bouillon until all nausea has subsided; you may then resume your normal diet. Special Care: * Light bleeding and vaginal spotting can last from a few days to 3-4 weeks. Call your doctor if bleeding becomes heavier than the heaviest part of your period. * Check your temperature twice a day for one week. If it goes above 100.4 degrees Fahrenheit (38.0 Celsius), notify your doctor. * Call your doctor's office for an appointment for 6 weeks after your surgery. FOLLOW-UP VISIT: Call your doctor's office for an appointment for 6 weeks after your surgery. Diet Recommendations Recommended Home Diet: resume previous diet Procedures Procedures Performed: Fractional Dilation and Curettage with ECC, Hysteroscopy, Cervical Polypectomy, Cervical biopsy Pending Studies Studies pending at discharge: yes List of pending studies: Cervix polyp, Cervix biopsy, endocervical curettage, endometrial curettage Medical Emergencies . Who to Call and When: Medical Emergencies: If at any time you feel your situation is an emergency, please call 911 immediately. . Non-Emergent Contact Non-Emergency issues call your: Primary Care Provider, [employer] Special Agent . . "Provider Documentation" section prepared by Payton John. .
[2017-04-06] MEDS ORDERED: IBUPROFEN 600 MG TAB PO PRN (10:45)
[2017-04-06] MEDS ORDERED: OXYCODONE/ACETAMINOPHEN 5-325 TAB PO PRN ×2 (10:45)
[2017-04-06] MEDS ORDERED: PROMETHAZINE HCL INJ 25 MG in SODIUM CHLORIDE 0.9% 50ML 50 ML IV PRN (10:45)
--- NOTE | 2017-04-06 10:52 | Anesthesiology Progress Note ---
Anesthesia Post Op Note Date & Time Apr 06, 2017 at 10:52 Vital Signs Pain Intensity: 0 Vital Signs Past 12 Hours Date Time Temp Pulse Resp B/P (MAP) Pulse Ox O2 Delivery O2 Flow Rate FiO2 04/06/17 10:40 68 17 152/80 99 Oxymask 10 04/06/17 10:30 71 20 153/80 100 Oxymask 10 04/06/17 10:21 36.7 72 14 163/88 100 Oxymask 10 04/06/17 08:05 36.6 63 16 147/72 (97) 97 Room Air Notes Mental Status: alert / awake / arousable, participated in evaluation Pt Amnestic to Procedure: Yes Nausea / Vomiting: adequately controlled Pain: adequately controlled Airway Patency, RR, SpO2: stable & adequate BP & HR: stable & adequate Hydration State: stable & adequate Anesthetic Complications: no major complications apparent
--- NOTE | 2017-04-06 11:22 | OPERATIVE REPORT ---
DATE OF OPERATION: 04/06/2017 PREOPERATIVE DIAGNOSIS: Postmenopausal bleeding. POSTOPERATIVE DIAGNOSES: Postmenopausal bleeding and cervical polyp. PROCEDURES PERFORMED: 1. Fractional dilation and curettage with endocervical curettage. 2. Hysteroscopy 3. Cervical polypectomy. 4. Cervical biopsy. SURGEON: Payton John DO RUBBER GASKET INSPECTOR TRIMMER: None. ESTIMATED BLOOD LOSS: 5 mL FINDINGS: Consistent with postoperative diagnosis. The patient had severe postmenopausal vaginal atrophy and a 1-cm bleeding cervical polyp and a visualized small mass in the uterine cavity. SPECIMENS: Cervical polyps, endocervical curettage, cervical biopsy and endometrial curettage. DRAINS: None. ANESTHESIA: General. COMPLICATIONS: None. DISPOSITION: Stable and good to recovery area. INDICATIONS FOR PROCEDURE: The patient had been seen in the Emergency Department with sudden onset of vaginal bleeding. She had presented after approximately 20 years of no medical care. Exam was very difficult in the Emergency Department due to heavy bleeding and vaginal atrophy. The ultrasound showed a 9-mm and a likely polyp; however, difficult to see on exam. The patient was counseled on the procedure and elected to undergo a hysteroscopy and D&C in the operating room. DESCRIPTION OF PROCEDURE: The patient was seen in the preoperative holding area where risks, benefits, and alternatives to surgery were reviewed. She elected to proceed with surgery. She was taken to the operating room where general anesthesia was administered. She was prepared and draped in the usual sterile fashion with feet in Yellofin stirrups in the dorsal lithotomy position. A right angle Cuevas retractor was placed in the vagina. The cervix was visualized and a 1-cm cervical polyp was seen and gently removed with a ring forceps in a twisting fashion. This was sent to pathology. Next, an endocervical curettage was performed. Next, the uterus was sounded to 7 cm and the cervix was gently dilated to admit the hysteroscope. Initially, the hysteroscope was inserted and it appeared that were in a false tract cavity; however, with manipulation, the hysteroscope was then placed in the cavity that appeared to be intrauterine, although bilateral tubal ostia were not visualized. The cavity did look like an atrophic endometrial tissue. There was a small mass at the fundus that was visualized. Therefore, the hysteroscope was switched out for a MyoSure scope and the MyoSure device was used to perform gentle endometrial curettage of the entire cavity. Specimen was retained and sent to pathology for further evaluation. The hysteroscope was withdrawn and a 12 o'clock specimen of the cervix was biopsied using a Tischler forceps. This was sent as a separate specimen. Silver nitrate sticks were used to obtain excellent hemostasis at the biopsy site as well as a small vaginal laceration caused by manipulation of the atrophic tissue. Excellent hemostasis was observed. All instruments were removed from the vagina and the patient was taken to the recovery area in stable and good condition. I attest to the content of the Intraoperative Record and any orders documented therein. Any exception s are noted below.
[2017-04-06 11:40] VITALS: BP 158/88; PULSE 70; TEMP 36.5; O2SAT 95
== END 2017-04-06 12:03 | disposition home or self-care (01) ==
LOC: C.ACU 07:25
PROVIDERS: ATTEND Obstetrics & Gynecology
DX: N95.0 Postmenopausal bleeding (principal); N84.1 Polyp of cervix uteri; E78.5 Hyperlipidemia, unspecified; E11.9 Type 2 diabetes mellitus without complications; Z90.49 Acquired absence of other specified parts of digestive tract

== ENCOUNTER → 2017-04-26 | Outpatient (CLI) | payer BC ==
[~2017-04-26] MED LIST changes: -DEXAMETHASONE SOD INJ 4 MG/ML VIAL ONE; -FENTANYL CITRATE INJ 50 MCG/1 ML 2 ML VIAL ONE; -LACTATED RINGER'S 1000ML 1,000 ML IV SCH; -LIDOCAINE HCL 2% 2 ML VIAL (20MG/ML) ONE; -MIDAZOLAM HCL 1 MG/ML 2ML VIAL ONE; -ONDANSETRON INJ 2 MG/ML 2 ML VIAL ONE; -PROPOFOL IV EMULSION 10 MG/ML 20 ML VIAL IV ONE
[2017-04-26 15:04] LABS: BLOOD UREA NITROGEN 12 mg/dl (7-18); CALCIUM 9.6 mg/dl (8.5-10.1); CARBON DIOXIDE 28 mmol/L (21-32); CREATININE 0.74 mg/dl (0.60-1.20); GLUCOSE 103 mg/dl (70-99); POTASSIUM 4.1 mmol/L (3.5-5.1); SODIUM 139 mmol/L (136-145)
== END | disposition home or self-care (01) ==
LOC: C.LABBC 10:11
PROVIDERS: ATTEND Physician Assistant Medical
DX: Z00.00 Encounter for general adult medical examination without abnormal findings (principal); E11.9 Type 2 diabetes mellitus without complications

== ENCOUNTER → 2017-05-23 | Outpatient (CLI) | payer BC ==
--- NOTE | 2017-05-23 14:14 | MAMMOGRAPHY REPORT ---
BILATERAL DIGITAL SCREENING MAMMOGRAM TOMOSYNTHESIS WITH CAD: 05/23/2017 CLINICAL HISTORY: Routine screening. Patient has no complaints. TECHNIQUE: Breast tomosynthesis in addition to standard 2D mammography was performed. Current study was also evaluated with a Computer Aided Detection (CAD) system. COMPARISON: No prior exams were available for comparison. BREAST COMPOSITION: The tissue of both breasts is heterogeneously dense, which may obscure small mas ses. FINDINGS: No suspicious masses, calcifications, or areas of architectural distortion are noted in ei ther breast. A few scattered bilateral benign-appearing calcifications are noted. IMPRESSION: ACR BI-RADS CATEGORY 2: BENIGN There is no mammographic evidence of malignancy. A 1 year screening mammogram is recommended. The pa tient will receive written notification of the results. Approximately 10% of breast cancers are not detected with mammography. A negative mammographic report should not delay biopsy if a clinically suggestive mass is present. Akosua Giordano M.D. ah/:05/23/2017 12:09:38 Student Success Counselor: Arina SIMMONS(Guillermo)(Anton), [facility] letter sent: Normal 1/2 BI-RADS Code: ACR BI-RADS Category 2: Benign
== END | disposition home or self-care (01) ==
LOC: C.MAMM 11:17
PROVIDERS: ATTEND Physician Assistant Medical
DX: Z12.31 Encounter for screening mammogram for malignant neoplasm of breast (principal)

== ENCOUNTER → 2017-05-31 | Outpatient (CLI) | payer BC | END | disposition home or self-care (01) | LOC: C.MAMM 14:24 | PROVIDERS: ATTEND Nurse Practitioner Adult Health | DX: Z78.0 Asymptomatic menopausal state (principal); M85.88 Other specified disorders of bone density and structure, other site ==

== ENCOUNTER → 2017-07-09 | Outpatient (CLI) | payer BC ==
[~2017-07-09] MED LIST changes: -TIMO0.5S35 OPB; +TIMO0.5S4 OPB
[2017-07-09 10:55] LABS: ALBUMIN 3.7 gm/dl (3.4-5.0); BLOOD UREA NITROGEN 13 mg/dl (7-18); CALCIUM 9.1 mg/dl (8.5-10.1); CARBON DIOXIDE 26 mmol/L (21-32); CREATININE 0.72 mg/dl (0.60-1.20); GLUCOSE 120 mg/dl (70-99); POTASSIUM 4.1 mmol/L (3.5-5.1); SODIUM 142 mmol/L (136-145)
[2017-07-09 10:58] LABS: ALKALINE PHOSPHATASE 78 U/L (45-117); ALT/SGPT 23 U/L (12-78); AST/SGOT 15 U/L (15-37); CHOLESTEROL 121 mg/dl (0-200); LDL CHOLESTEROL CALCULATED 52 mg/dl; TOTAL PROTEIN 7.3 gm/dl (6.4-8.2)
[2017-07-09 11:08] LABS: HEMOGLOBIN A1C 5.5 % (4.5-5.6)
== END | disposition home or self-care (01) ==
LOC: C.LABBC 08:06
PROVIDERS: ATTEND Nurse Practitioner Adult Health
DX: E11.9 Type 2 diabetes mellitus without complications (principal)

== ENCOUNTER → 2017-10-15 | Outpatient (CLI) | payer BC ==
[~2017-10-15] MED LIST changes: +TIMO-31 OPB; -TIMO0.5S4 OPB
[2017-10-15 11:26] LABS: HEMOGLOBIN A1C 5.8 % (4.5-5.6)
== END | disposition home or self-care (01) ==
LOC: C.LABBC 08:12
PROVIDERS: ATTEND Nurse Practitioner Adult Health
DX: E11.9 Type 2 diabetes mellitus without complications (principal)